=== PATIENT | male | born 1975 | race Caucasian/White ===

== ENCOUNTER 2016-11-05 16:54 | Emergency (ER) | payer OTHER ==
[2016-11-05 17:16] VITALS: BMI 30.4
[2016-11-05] MEDS ORDERED: ONDANSETRON 4 MG/2 ML VIAL IVPB ONE ×2 (18:24→21:56)
[2016-11-05] MEDS ORDERED: HYDROmorphone HCL CARPU-JECT 1 MG/1 ML DISP.SYRIN IVPUSH ONE ×3 (18:25→21:57)
[2016-11-05] MEDS ORDERED: ONDANSETRON 4 MG/2 ML VIAL ONE ×3 (18:29→21:57)
[2016-11-05] MEDS ORDERED: HYDROmorphone HCL CARPU-JECT 1 MG/1 ML DISP.SYRIN ONE ×3 (18:29→21:57)
--- NOTE | 2016-11-05 18:31 | PDOC ---
History of Present Illness - General History Source: Patient Exam Limitations: No Limitations - History of Present Illness Initial Comments: 11/05/16 18:54 The patient is a 41 year old male, with a significant past medical history of anemia, extensive GI problems including PUD, gastroparesis, diverticulitis, and surgical history of bashir fundoplication with subsequent trinidad-en-y, appendectomy, cholecystectomy, and hernia repair (2011), who presents to the emergency department with complaints of nausea, vomiting, abdominal pain, and bloody diarrhea since this morning. The patient denies any blood present in the emesis. The patient has been treated with dilaudid in the past for pain flare ups. Although he states that he is allergic to morphine he has had no allergic reaction to dilaudid with multiple treatments. He denies chest pain, shortness of breath, headache and dizziness. He denies fever, chills, and constipation. Allergies: ketorolac tromethamine, morphine, promethazine HCl, metoclopramide HCl, IV contrast Past surgical history: bashir fundoplication with subsequent trinidad-en-y, appendectomy, cholecystectomy, hernia repair (May 2016) Social history:Never smoked Family history: [place] at early age, Father in his 30s and Mother in her 40s <Raquel Green - Last Filed: 11/05/16 18:58> <eJwel Hudson - Last Filed: 11/08/16 07:47> - General Chief Complaint: Nausea/Vomiting Stated Complaint: N/V/D Time Seen by Provider: 11/05/16 18:23 Past History <Raquel Green - Last Filed: 11/05/16 18:58> - Past Medical History Anemia: Yes (IRON DEFICIENCY) GI Disorders: Yes (ULCERS) - Surgical History Appendectomy: Yes Cholecystectomy: Yes (REFLUX SURGERY) GI Surgery: Yes - Immunization History Immunization Up to Date: Yes - Psycho/Social/Smoking Cessation Hx Anxiety: No Suicidal Ideation: No Smoking History: Never smoked Have you smoked in the past 12 months: No Information on smoking cessation initiated: No Hx Alcohol Use: No Drug/Substance Use Hx: No Substance Use Type: None <Jewel Hudson - Last Filed: 11/08/16 07:47> - Past Medical History Allergies/Adverse Reactions: Allergies Allergy/AdvReac Type Severity Reaction Status Date / Time ketorolac tromethamine Allergy Verified 11/12/13 11:50 [From Toradol] morphine Allergy Verified 11/12/13 11:50 promethazine HCl Allergy Verified 11/12/13 11:50 [From Phenergan] metoclopramide HCl AdvReac Verified 11/12/13 11:50 [From Reglan] CONTRAST Allergy Uncoded 11/05/16 17:44 Home Medications: Ambulatory Orders Diphenhydramine [Benadryl Capsule -] 50 mg PO PRN 11/02/13 Ondansetron HCl [Zofran] 4 mg PO Q4H 11/02/13 Pantoprazole Sodium [Protonix] 40 mg PO BID 11/02/13 Review of Systems - Review of Systems Able to Perform ROS?: Yes Comments:: 11/05/16 18:54 CONSTITUTIONAL: Absent: fever, no chills, no fatigue EYES: Absent: visual changes ENT: Absent: ear pain, no sore throat CARDIOVASCULAR: Absent: chest pain, no palpitations RESPIRATORY: Absent: cough, no SOB GI:+Abdominal pain, +Nausea, +Vomiting, + Bloody Diarrhea Absent: no constipation GENITOURINARY: Absent: dysuria, no frequency, no hematuria MUSKULOSKELETAL: Absent: back pain, no arthralgia, no myalgia SKIN: Absent: rash NEURO: Absent: headache <CraftRaquel - Last Filed: 11/05/16 18:58> *Physical Exam - Vital Signs Last Vital Signs Temp Pulse Resp BP Pulse Ox 98.5 F 89 18 134/87 97 11/05/16 16:58 11/05/16 16:58 11/05/16 16:58 11/05/16 16:58 11/05/16 16:58 - Physical Exam Comments: 11/05/16 18:58 GENERAL: Well-appearing, well-nourished. None icterus. No apparent distress. HEENT: Normocephalic, atraumatic. PERRL, EOM intact. Moist mucous membranes. Neck without masses. CARDIOVASCULAR: Normal S1, S2. Regular rate and rhythm. PULMONARY: Clear to auscultation bilaterally. ABDOMEN: +Multiple scars due to prior surgeries. There was moderate to severe tenderness in the lower left quadrant with involuntary guarding but no rebound. Soft, non-distended. Normal bowel sounds. EXTREMITIES: Normal ROM in all four extremities. No gross deformities. SKIN: Warm, dry. No rash NEUROLOGICAL: No focal neurological deficits. <Raquel Green - Last Filed: 11/05/16 18:58> - Vital Signs Last Vital Signs Temp Pulse Resp BP Pulse Ox 98.5 F 89 18 134/87 97 11/05/16 16:58 11/05/16 16:58 11/05/16 16:58 11/05/16 16:58 11/05/16 16:58 <Jewel Hudson - Last Filed: 11/08/16 07:47> ED Treatment Course - LABORATORY CBC & Chemistry Diagram: 11/05/16 18:30 11/05/16 18:30 - Medications Given in the ED: ED Medications Discontinued Medications Generic Name Dose Route Start Last Admin Trade Name Jane PRN Reason Stop Dose Admin Diphenhydramine HCl 50 mg 11/05/16 18:25 11/05/16 18:29 Benadryl Injection - IVPUSH 11/05/16 18:26 50 mg ONCE ONE Administration Hydromorphone HCl 1 mg 11/05/16 18:25 11/05/16 18:29 Dilaudid Injection - IVPUSH 11/05/16 18:26 1 mg ONCE ONE Administration Ondansetron HCl 4 mg 11/05/16 18:24 11/05/16 18:29 Zofran Injection IVPB 11/05/16 18:25 4 mg ONCE ONE Administration <Raquel Green - Last Filed: 11/05/16 18:58> - LABORATORY CBC & Chemistry Diagram: 11/05/16 18:30 11/05/16 18:30 <Jewel Hudson - Last Filed: 11/08/16 07:47> Medical Decision Making - Medical Decision Making Patient with a history of diverticulitis and multiple prior abdominal surgeries presents with what he feels is a flareup of his diverticulitis. Pain began this morning, left lower quadrant, states he had several episodes of vomiting and diarrhea. Abdominal exam shows tenderness in the left lower quadrant, equivocal guarding, no rebound. Labs and CAT scan are pending. Signed out to Dr. Santacruz 7 PM pending results of studies. <Jewel Hudson - Last Filed: 11/08/16 07:47> *DC/Admit/Observation/Transfer - Attestations Scribe Attestion: 11/05/16 18:54 Documentation prepared by DELTA Sevilla, acting as director global medical affairs for Jewel Hudson MD. <Raquel Green - Last Filed: 11/05/16 18:58> <Jewel Hudson - Last Filed: 11/08/16 07:47> Diagnosis at time of Disposition: Diarrhea, Abdominal pain - Discharge Dispostion Disposition: HOME Condition at time of disposition: Stable - Patient Instructions Printed Discharge Instructions: DI for Diarrhea and Traveler's Diarrhea -- Adult Additional Instructions: Drink plenty of fluids Follow-up with your doctor within 2 days See your doctor sooner or go to ER if you have increasing pain/increased rectal bleeding/develop vomiting
[2016-11-05 18:45] LABS: MCH 25.2 pg (25.7-33.7); MCHC 34.1 g/dl (32.0-35.9); MEAN CELL VOLUME 73.7 fl (80-96); MEAN PLT VOLUME 7.4 fl (7.5-11.1); PLATELET COUNT 267 K/MM3 (134-434); RDW 13.6 % (11.9-15.9); WHITE BLOOD COUNT 5.9 K/mm3 (4.0-10.8)
[2016-11-05] MEDS ORDERED: SODIUM CHLORIDE 1,000 ML IV STA (18:57)
[2016-11-05 19:04] LABS: ALBUMIN 4.2 g/dl (3.5-5.0); ALK PHOS 130 U/L (32-92); ANION GAP 6 (8-16); BILIRUBIN,TOTAL 0.7 mg/dl (0.2-1.0); CALCIUM 9.1 mg/dl (8.4-10.2); CO2 25 mmol/L (22-28); CREATININE 0.9 mg/dl (0.6-1.3); GLUCOSE,RANDOM 170 mg/dl (74-106); SGOT/AST 40 U/L (10-42); SGPT/ALT 35 U/L (10-40); TOT PROT 7.6 g/dl (6.4-8.3)
[2016-11-05 19:19] LABS: HYPOCHROMIA 1+; MICROCYTOSIS 1+
[2016-11-05 19:41] LABS: PH,URINE 5.5 (4.5-8); URINE APPEARANCE Clear; URINE BILIRUBIN Negative (NEGATIVE); URINE BLOOD Negative (NEGATIVE); URINE GLUCOSE (UA) Negative (NEGATIVE); URINE KETONE Negative (NEGATIVE); URINE LEUK ESTERASE Negative (NEGATIVE); URINE NITRITE Negative (NEGATIVE); URINE PROTEIN Negative (NEGATIVE); URINE UROBILINOGEN 0.2 E.U/dl (0.2-1.0)
[2016-11-05 19:42] LABS: URINE COLOR YELLOW
--- NOTE | 2016-11-05 19:52 | PDOC ---
*Physical Exam - Vital Signs Last Vital Signs Temp Pulse Resp BP Pulse Ox 98.5 F 89 18 134/87 97 11/05/16 16:58 11/05/16 16:58 11/05/16 16:58 11/05/16 16:58 11/05/16 16:58 ED Treatment Course - LABORATORY CBC & Chemistry Diagram: 11/05/16 18:30 11/05/16 18:30 - ADDITIONAL ORDERS Additional order review: Laboratory Results 11/05/16 11/05/16 19:30 18:30 Sodium 136 Potassium 4.0 Chloride 105 Carbon Dioxide 25 Anion Gap 6 L BUN 10 Creatinine 0.9 Creat Clearance w eGFR > 60 Random Glucose 170 H Calcium 9.1 Total Bilirubin 0.7 AST 40 ALT 35 Alkaline Phosphatase 130 H Total Protein 7.6 Albumin 4.2 Lipase 26 Urine Color Yellow Urine Appearance Clear Urine pH 5.5 Ur Specific [place] 1.020 Urine Protein Negative Urine Glucose (UA) Negative Urine Ketones Negative Urine Blood Negative Urine Nitrite Negative Urine Bilirubin Negative Urine Urobilinogen 0.2 e.u/dl Ur Leukocyte Esterase Negative 11/05/16 18:30 RBC 4.85 MCV 73.7 L MCHC 34.1 RDW 13.6 MPV 7.4 L Neutrophils % 95.0 H Lymphocytes % 2.0 L Monocytes % 1.0 L - Medications Given in the ED: ED Medications Discontinued Medications Generic Name Dose Route Start Last Admin Trade Name Jane PRN Reason Stop Dose Admin Diphenhydramine HCl 50 mg 11/05/16 18:25 11/05/16 18:29 Benadryl Injection - IVPUSH 11/05/16 18:26 50 mg ONCE ONE Administration Hydromorphone HCl 1 mg 11/05/16 18:25 11/05/16 18:29 Dilaudid Injection - IVPUSH 11/05/16 18:26 1 mg ONCE ONE Administration Hydromorphone HCl 1 mg 11/05/16 19:00 11/05/16 19:18 Dilaudid Injection - IVPUSH 11/05/16 19:01 1 mg ONCE ONE Administration Ondansetron HCl 4 mg 11/05/16 18:24 11/05/16 18:29 Zofran Injection IVPB 11/05/16 18:25 4 mg ONCE ONE Administration Progress Note - Progress Note Progress Note: Care of this patient received from Dr. Avila. Abdominal/pelvic CT shows no evidence of acute pathology without evidence of obstruction/abscess/acute inflammatory or infectious process Results discussed with the patient. Patient states that he has had recurrence of his pain; he is been informed that he can have 1 more dose of pain medication here but will not be discharged with any prescription for pain medications. He understands this and agrees. Patient will follow-up with his general doctor (in [place]) within the next few days, especially if he has persistent blood or mucus in his diarrhea. He should return to the ER if he has worsening abdominal pain or develops fever/ chills/vomiting *DC/Admit/Observation/Transfer Diagnosis at time of Disposition: Diarrhea Qualifiers: Diarrhea type: unspecified type Qualified Code(s): R19.7 - Diarrhea, unspecified Abdominal pain Qualifiers: Abdominal location: left lower quadrant Qualified Code(s): R10.32 - Left lower quadrant pain - Discharge Dispostion Disposition: HOME Condition at time of disposition: Stable - Patient Instructions Printed Discharge Instructions: DI for Diarrhea and Traveler's Diarrhea -- Adult Additional Instructions: Drink plenty of fluids Follow-up with your doctor within 2 days See your doctor sooner or go to ER if you have increasing pain/increased rectal bleeding/develop vomiting
[2016-11-05] MEDS ORDERED: ONDANSETRON 4 MG/2 ML VIAL IVPUSH ONE (20:56)
[2016-11-05 22:13] VITALS: BP 130/92; PULSE 103; TEMP 98.3
== END 2016-11-05 22:12 | disposition home or self-care (01) ==
LOC: FER 16:54
PROC: 3E033GC Introduction of Other Therapeutic Substance into Peripheral Vein, Percutaneous Approach (ICD-10-PCS; principal; 2016-11-05)
PROC: 3E033NZ Introduction of Analgesics, Hypnotics, Sedatives into Peripheral Vein, Percutaneous Approach (ICD-10-PCS; 2016-11-05)
PROC: 3E0337Z Introduction of Electrolytic and Water Balance Substance into Peripheral Vein, Percutaneous Approach (ICD-10-PCS; 2016-11-05)
DX: R19.7 Diarrhea, unspecified (principal); R10.9 Unspecified abdominal pain; D50.9 Iron deficiency anemia, unspecified
CPT/HCPCS: 36415; 74176-TC; 80053; 81003; 83690; 85025; 99282-25

== ENCOUNTER 2018-08-15 19:12 | Emergency (ER) | payer OTHER ==
[2018-08-15 19:20] VITALS: BP 122/80; PULSE 90; TEMP 97.9; BMI 23.6
[2018-08-15] MEDS ORDERED: HYDROmorphone HCL CARPU-JECT 1 MG/1 ML DISP.SYRIN IVPUSH ONE (19:39)
[2018-08-15] MEDS ORDERED: ONDANSETRON 4 MG/2 ML VIAL IVPB ONE (19:39)
[2018-08-15] MEDS ORDERED: PANTOPRAZOLE SODIUM 40 MG VIAL IVPUSH ONE (19:40)
[2018-08-15] MEDS ORDERED: ONDANSETRON 4 MG/2 ML VIAL ONE ×2 (19:51→21:33)
[2018-08-15] MEDS ORDERED: PANTOPRAZOLE SODIUM 40 MG VIAL ONE (19:52)
[2018-08-15] MEDS ORDERED: HYDROmorphone HCL CARPU-JECT 1 MG/1 ML DISP.SYRIN ONE (19:52)
[2018-08-15 20:26] LABS: BASO % 0.7 % (0-2.0); EOS % 1.5 % (0-4.5); HEMATOCRIT 32.1 % (35.4-49); HEMOGLOBIN 10.7 GM/dl (11.7-16.9); LYMPH % 18.5 % (8-40); MCH 27.3 pg (25.7-33.7); MCHC 33.3 g/dl (32.0-35.9); MEAN CELL VOLUME 82.2 fl (80-96); MEAN PLT VOLUME 7.1 fl (7.5-11.1); MONO % 11.3 % (3.8-10.2); PLATELET COUNT 231 K/MM3 (134-434); RBC 3.91 M/mm3 (4.00-5.60); RDW 20.3 % (11.9-15.9); WHITE BLOOD COUNT 3.9 K/mm3 (4.0-10.8)
[2018-08-15 20:29] LABS: ADD RBC MORPHOLOGY YES
--- NOTE | 2018-08-15 20:30 | PDOC ---
Documentation entered by Stoney Burroughs SCRIBE, acting as scribe for Lanny Batres MD. Lanny Batres MD: This documentation has been prepared by the Heike lay Nirvannie, SCRIBE, under my direction and personally reviewed by me in its entirety. I confirm that the documentation accurately reflects all work, treatment, procedures, and medical decision making performed by me. History of Present Illness - General Chief Complaint: Pain, Acute Stated Complaint: N/V/D/ABD PAIN Time Seen by Provider: 08/15/18 19:18 History Source: Patient Exam Limitations: No Limitations - History of Present Illness Initial Comments: 08/15/18 19:49 HPI: The patient is a 43 year old male, with a significant past medical history of anemia, extensive GI problems including PUD, gastroparesis, diverticulitis, and gastric ulcers, who presents to the emergency department with, nausea with hematemesis, left quadrant abdominal pain, and diarrhea. 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 He endorses similar episodes in the past which resolved after IV Benadryl, Zofran, Protonix, Dilaudid, and fluids. He denies any recent fevers, chills, headache or dizziness. He denies any recent chest pain or shortness of breath. He denies any recent dysuria, frequency, urgency or hematuria. PAST MEDICAL HISTORY: anemia, extensive GI problems including PUD, gastroparesis, diverticulitis, and gastric ulcers PAST SURGICAL HISTORY: bashir fundoplication with subsequent trinidad-en-y, appendectomy, cholecystectomy, hernia repair (May 2016) FAMILY HISTORY: no pertinent history SOCIAL HISTORY: Pt lives with family and is employed. MEDICATIONS: reviewed ALLERGIES: As per nursing notes ROS: General: No fevers or chills, no weakness, no weight loss HEENT: No change in vision. No sore throat,. No ear pain CardioVascular: No chest pain or shortness of breath Respiratory:No cough, or wheezing. Gastrointestinal: +Nausea. +Hematemesis. +Diarrhea. +Abdominal pain. Genitourinary: No dysuria, hematuria, or frequency Musculoskeletal: No joint or muscle pain or swelling Neurologic: No headache, vertigo, dizziness or loss of consciousness Psychiatric: nor depression Skin: No rashes or easy bruising Endocrine: no increased thirst or abnormal weight change Allergic: no skin or latex allergy All other systems reviewed and normal Physical Exam: General: Well-nourished well-developed individual, no acute distress HEENT: Throat: Normal, tonsils normal, no erythema or exudate Neck: Supple, no meningeal signs, no lymphadenopathy Eyes:Pupils equal reactive and round, extraocular motion intact Chest: Nontender to palpation Cardiac: S1-S2 normal, regular rate and rhythm, no murmurs rubs or gallops Respiratory: Lungs clear to auscultation bilateral Abdomen: Soft, nondistended, +increased bowel sounds, +tenderness to deep palpation of the LUQ. Extremities: Warm, dry, no cyanosis, clubbing, or edema Skin: No rashes Neuro: Alert and oriented x3, nonfocal exam, grossly intact, normal gait Psych: Normal mood and affect 08/15/18 20:32 Assessment and plan: This is a 43-year-old male with extensive history of abdominal surgeries. Patient comes in complaining of several episodes of emesis with some bright red blood in it. Patient said this is not uncommon for him and he has had this in the past. Patient said normally some IV fluids some antiemetics, pain medication and Protonix are adequate. Patient's surgeons are not in this area they're all over in [place]. Patient will have a basic workup including CAT scan labs and will reassess and reevaluate. 08/15/18 21:33 Patient's workup was unremarkable for any acute pathology including the CAT scan. Patient had a normal white count and no left shift and his chemistries were unremarkable. Patient felt better after the IV fluids Zofran Benadryl and Dilaudid. However patient said some nausea (to return so I gave him some more Zofran and he will be discharged home. Past History - Past Medical History Allergies/Adverse Reactions: Allergies Allergy/AdvReac Type Severity Reaction Status Date / Time ketorolac tromethamine Allergy Verified 11/12/13 11:50 [From Toradol] morphine Allergy Verified 11/12/13 11:50 promethazine HCl Allergy Verified 11/12/13 11:50 [From Phenergan] metoclopramide HCl AdvReac Verified 11/12/13 11:50 [From Reglan] CONTRAST Allergy Uncoded 11/05/16 17:44 Home Medications: Ambulatory Orders Diphenhydramine [Benadryl Capsule -] 50 mg PO PRN 11/02/13 Ondansetron HCl [Zofran] 4 mg PO Q4H 11/02/13 Pantoprazole Sodium [Protonix] 40 mg PO BID 11/02/13 Dilaudid - PRN 08/15/18 Sucralfate [Carafate -] 1 gm PO QID 08/15/18 Anemia: Yes (IRON DEFICIENCY) COPD: No GI Disorders: Yes (ULCERS, GASTROPARESIS, DIVERTIC) - Surgical History Appendectomy: Yes Cholecystectomy: Yes (REFLUX SURGERY) GI Surgery: Yes (15) - Immunization History Immunization Up to Date: Yes - Suicide/Smoking/Psychosocial Hx Smoking History: Never smoked Have you smoked in the past 12 months: No Hx Alcohol Use: No Drug/Substance Use Hx: No Substance Use Type: None *Physical Exam - Vital Signs Last Vital Signs Temp Pulse Resp BP Pulse Ox 97.9 F 90 16 122/80 100 08/15/18 19:15 08/15/18 19:15 08/15/18 19:15 08/15/18 19:15 08/15/18 19:15 ED Treatment Course - LABORATORY CBC & Chemistry Diagram: 08/15/18 20:05 08/15/18 20:05 *DC/Admit/Observation/Transfer Diagnosis at time of Disposition: Abdominal pain in male patient - Discharge Dispostion Disposition: HOME Condition at time of disposition: Stable Decision to Admit order: No - Referrals - Patient Instructions Additional Instructions: Continue to take all your medications as prescribed. Return to the emergency department immediately with ANY new, persistent or worsening symptoms. Continue any medications as previously prescribed by your physician. You should follow up with your primary doctor as soon as possible regarding today's emergency department visit. . Please make sure your doctor reviews the results of your emergency evaluation. Thank you for coming to the Emergency Department today for your care. It was a pleasure to see you today. Please note that your evaluation is INCOMPLETE until you follow-up with your doctor. - Post Discharge Activity
[2018-08-15] MEDS ORDERED: SODIUM CHLORIDE 1,000 ML IV ONE (20:33)
[2018-08-15 20:38] LABS: ALBUMIN 3.2 g/dl (3.4-5.0); ALK PHOS 132 U/L (45-117); ANION GAP 7 MMOL/L (8-16); BILIRUBIN,TOTAL 0.4 mg/dl (0.2-1); BLOOD UREA NITROGEN 15 mg/dl (7-18); CALCIUM 8.4 mg/dl (8.5-10); CHLORIDE 107 mmol/L (98-107); CO2 25 mmol/L (21-32); CREATININE 0.6 mg/dl (0.55-1.3); GLUCOSE,RANDOM 101 mg/dl (74-106); POTASSIUM 3.9 mmol/L (3.5-5.1); SGOT/AST 25 U/L (15-37); SGPT/ALT 23 U/L (13-61); SODIUM 139 mmol/L (136-145)
[2018-08-15] MEDS ORDERED: ONDANSETRON 4 MG/2 ML VIAL IVPUSH ONE (21:31)
[2018-08-15 21:36] LABS: URIC ACID CRYSTALS 2+ /hpf (NONE SEEN)
[2018-08-15 22:50] LABS: ANISOCYTOSIS 3+; PLATELET ESTIMATE ADEQUATE
[2018-08-15 23:19] LABS: LIPASE 155 U/L (73-393)
== END 2018-08-15 21:51 | disposition home or self-care (01) ==
LOC: FER 19:12
PROC: 3E0337Z Introduction of Electrolytic and Water Balance Substance into Peripheral Vein, Percutaneous Approach (ICD-10-PCS; principal; 2018-08-15)
PROC: 3E033NZ Introduction of Analgesics, Hypnotics, Sedatives into Peripheral Vein, Percutaneous Approach (ICD-10-PCS; 2018-08-15)
PROC: 3E033GC Introduction of Other Therapeutic Substance into Peripheral Vein, Percutaneous Approach (ICD-10-PCS; 2018-08-15)
PROC: 3E033GC Introduction of Other Therapeutic Substance into Peripheral Vein, Percutaneous Approach (ICD-10-PCS; 2018-08-15)
PROC: 3E033GC Introduction of Other Therapeutic Substance into Peripheral Vein, Percutaneous Approach (ICD-10-PCS; 2018-08-15)
DX: R10.9 Unspecified abdominal pain (principal); Z87.19 Personal history of other diseases of the digestive system; Z86.2 Personal history of diseases of the blood and blood-forming organs and certain disorders involving the immune mechanism
CPT/HCPCS: 36415; 74176-TC; 80053; 81003; 81015; 82550; 83605; 83690; 84484; 85025; 99283-25; J7030

== ENCOUNTER 2018-12-25 01:25 | Emergency (ER) | payer SELFPAY ==
--- NOTE | 2018-12-25 01:35 | PDOC ---
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 The patient notes some bloody streaking in vomitus which has occurred in the past, thought to be secondary to gastric resection according the patient. No blood in diarrhea. Patient is currently not taking any medications specifically for Crohn's disease , stating that his doctors are "observing it". Patient states that he lives in [place], where his gastroenterologists and surgeons are. His girlfriend lives locally ([place]). 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 He last ate and took his prescribed medications 8 hours prior to medications No family history of gastrointestinal problems. Strong family history of early heart disease (both mother and father of myocardial infarction prior to age 50). Patient has no history of cardiac disease. Patient denies smoking history. No alcohol or other recreational drug use. Past History - Past Medical History Allergies/Adverse Reactions: Allergies Allergy/AdvReac Type Severity Reaction Status Date / Time ketorolac tromethamine Allergy Verified 12/25/18 02:05 [From Toradol] morphine Allergy Verified 12/25/18 02:05 promethazine HCl Allergy Verified 12/25/18 02:05 [From Phenergan] metoclopramide HCl AdvReac Verified 12/25/18 02:05 [From Reglan] CONTRAST Allergy Uncoded 11/05/16 17:44 Home Medications: Ambulatory Orders Diphenhydramine [Benadryl Capsule -] 50 mg PO PRN 11/02/13 Ondansetron HCl [Zofran] 4 mg PO Q4H 11/02/13 Pantoprazole Sodium [Protonix] 40 mg PO BID 11/02/13 Dilaudid - PRN 08/15/18 Sucralfate [Carafate -] 1 gm PO QID 08/15/18 Anemia: Yes (IRON DEFICIENCY) COPD: No GI Disorders: Yes (ULCERS, GASTROPARESIS, DIVERTIC) - Surgical History Appendectomy: Yes Cholecystectomy: Yes (REFLUX SURGERY) GI Surgery: Yes (15) - Immunization History Immunization Up to Date: Yes - Suicide/Smoking/Psychosocial Hx Smoking History: Never smoked Have you smoked in the past 12 months: No Hx Alcohol Use: No Drug/Substance Use Hx: No Substance Use Type: None Review of Systems - Review of Systems Able to Perform ROS?: Yes Comments:: 12 point review of systems is negative except for what is noted in the history of present illness *Physical Exam - Physical Exam Comments: GENERAL: Adult male, alert and oriented 3, in mild distress secondary to nausea /abdominal discomfort HEAD: Normal with no signs of trauma. EYES: PERRLA, EOMI, sclera anicteric, conjunctiva clear. ENT: Ears normal, nares patent, oropharynx clear without exudates. Dry mucous membranes. NECK: Normal range of motion, supple without lymphadenopathy, JVD, or masses. LUNGS: Breath sounds equal, clear to auscultation bilaterally. No wheezes, and no crackles. HEART:Regular rate and rhythm, normal S1 and S2 without murmur, rub or gallop. ABDOMEN:.Normoactive bowel sounds; soft, nondistended, multiple well-healed surgical incisions; generalized mild tenderness without rebound/guarding No masses EXTREMITIES: Normal range of motion, no edema. No clubbing or cyanosis. No erythema, or tenderness. NEUROLOGICAL: Cranial nerves II through XII grossly intact. Normal speech. No focal neurological deficits. ED Treatment Course - LABORATORY CBC & Chemistry Diagram: 12/25/18 02:04 12/25/18 02:04 Progress Note - Progress Note Progress Note: This 43-year-old man with long history of multiple gastrointestinal issues with most recent development of intestinal perforation/bowel resection last year and new diagnosis of "borderline Crohn's disease" presents with several hour history of nausea/vomiting/diarrhea along with usual generalized abdominal pain. Patient relates that this episodes are typical of usual flareups of abdominal pain/vomiting/ diarrhea. He states that his doctors believe that these episodes are related to inflammatory issues within the bowel and are not infectious or related to diet. Exam as noted. Because patient was not actively vomiting on presentation, abdomen was soft without significant point tenderness with normal bowel sounds, acute obstruction is not highly suspected. Therefore, imaging studies will be deferred unless symptoms are persistent. According to the patient IV fluids, Benadryl 50 mg IV, Protonix 40 mg IV, Dilaudid 1-2 mg IV, Zofran 4 mg IV are typically effective for treatment of his symptoms The patient has an indwelling port in the left upper chest. This was accessed for blood work and fluids/medication administration. CBC and chemistry profile evaluated: Patient has evidence of mild anemia, stable as compared to previous values. White blood cell count is 4,600 with normal differential. Chemistry profile revealed normal electrolytes, BUN/ creatinine. LFT was mildly elevated but this has been noted in the past . No other significant abnormality seen. Medical Decision Making - Medical Decision Making 12/25/18 03:28 Patient felt significant improvement in nausea, some improvement in pain after 1 L normal saline IV, 8 mg Zofran IV total, 100 mg Benadryl IV total, Dilaudid 3 mg IV total. He continued to have intermittent diarrhea but no blood noted in stool. He felt comfortable enough to go home, stating that he will follow- up with his doctors tomorrow. Repeat vital signs showed no evidence of hypotension (BP 148/90); he ambulated without difficulty and was alert, oriented on discharge. He states that he would return to his girlfriend's home in [place] via car service ([employer]) 12/25/18 03:40 When patient was discharged, he assured me that he had called car service through his phone application and was awaiting car arrival to return home. He was clearly advised not to drive himself home and he agreed, stating "I am not stupid". After discharge, the patient stayed outside of the ED entrance for approximately 10 minutes. He was then noted by security staff entering his own vehicle and driving out of the parking lot. *DC/Admit/Observation/Transfer Diagnosis at time of Disposition: Diarrhea Qualifiers: Diarrhea type: unspecified type Qualified Code(s): R19.7 - Diarrhea, unspecified Abdominal pain Qualifiers: Abdominal location: generalized Qualified Code(s): R10.84 - Generalized abdominal pain - Discharge Dispostion Disposition: HOME Condition at time of disposition: Stable - Referrals - Patient Instructions Printed Discharge Instructions: Diarrhea Additional Instructions: Continue medications as prescribed Drink plenty of fluids Follow-up with your doctor tomorrow as discussed Return to ER if you have persistent vomiting/worsening pain/fever or bloody diarrhea - Post Discharge Activity
[2018-12-25] MEDS ORDERED: SODIUM CHLORIDE 1,000 ML IV STA (01:44)
[2018-12-25] MEDS ORDERED: ONDANSETRON 4 MG/2 ML VIAL IVPUSH ONE ×2 (01:45→02:23)
[2018-12-25] MEDS ORDERED: HYDROmorphone HCL CARPU-JECT 1 MG/1 ML DISP.SYRIN IVPUSH ONE ×3 (01:49→02:55)
[2018-12-25] MEDS ORDERED: ONDANSETRON 4 MG/2 ML VIAL ONE ×2 (01:56→02:23)
[2018-12-25] MEDS ORDERED: HYDROmorphone HCL CARPU-JECT 1 MG/1 ML DISP.SYRIN ONE ×3 (01:56→02:56)
[2018-12-25] MEDS ORDERED: PANTOPRAZOLE SODIUM 40 MG VIAL IVPB ONE (02:08)
[2018-12-25 02:12] VITALS: TEMP 98; BMI 27.3
[2018-12-25] MEDS ORDERED: PANTOPRAZOLE SODIUM 40 MG VIAL ONE (02:14)
[2018-12-25 02:41] LABS: BASO % 0.7 % (0-2.0); EOS % 1.1 % (0-4.5); HEMATOCRIT 31.3 % (35.4-49); HEMOGLOBIN 9.8 GM/dL (11.7-16.9); LYMPH % 20.2 % (8-40); MCH 22.3 pg (25.7-33.7); MCHC 31.3 g/dl (32.0-35.9); MEAN CELL VOLUME 71.2 fl (80-96); MEAN PLT VOLUME 7.6 fl (7.5-11.1); MONO % 10.5 % (3.8-10.2); NEUT % 67.5 % (42.8-82.8); PLATELET COUNT 215 K/MM3 (134-434); RBC 4.39 M/mm3 (4.00-5.60); RDW 19.9 % (11.9-15.9); WHITE BLOOD COUNT 4.6 K/mm3 (4.0-10.0)
[2018-12-25 02:49] LABS: ALBUMIN 3.6 g/dl (3.4-5.0); BILIRUBIN,TOTAL 0.4 mg/dL (0.2-1); BLOOD UREA NITROGEN 14.8 mg/dL (7-18); CALCIUM 8.3 mg/dL (8.5-10.1); CREATININE 0.9 mg/dL (0.55-1.3); POTASSIUM 3.7 mmol/L (3.5-5.1); TOT PROT 6.7 g/dl (6.4-8.2)
[2018-12-25 03:20] VITALS: BP 148/90; PULSE 95
== END 2018-12-25 03:23 | disposition home or self-care (01) ==
LOC: FER 01:25
PROC: 3E033GC Introduction of Other Therapeutic Substance into Peripheral Vein, Percutaneous Approach (ICD-10-PCS; principal; 2018-12-25)
PROC: 3E033NZ Introduction of Analgesics, Hypnotics, Sedatives into Peripheral Vein, Percutaneous Approach (ICD-10-PCS; 2018-12-25)
PROC: 3E0337Z Introduction of Electrolytic and Water Balance Substance into Peripheral Vein, Percutaneous Approach (ICD-10-PCS; 2018-12-25)
DX: R10.84 Generalized abdominal pain (principal); R19.7 Diarrhea, unspecified
CPT/HCPCS: 36415; 80053; 85025; 99282-25; J7030

== ENCOUNTER 2019-01-07 01:04 | Emergency (ER) | payer SELFPAY ==
--- NOTE | 2019-01-07 01:06 | PDOC ---
History of Present Illness - General Chief Complaint: Pain Stated Complaint: ABDOMINAL PAIN, VOMITING Time Seen by Provider: 01/07/19 01:06 - History of Present Illness Initial Comments: 01/07/19 01:16 Pt with history of PUD, gastritis, ?chrons, diverticulitis and multiple abdominal surgeries presents to the ED complaining of the acute onset of nausea , vomiting and epigastric pain that began 5 hours ago. He reports more than 6 episodes on non bloody, non bilious emesis. Patient has longstanding history of chronic intermittent nausea and vomiting, and has been to the ED for the same complaints several times with negative work up. States that he is followed by physicians in [facility] and that he had an endoscopy on Sunday which showed "a lot of inflammation". States that he is going to have a colostomy placed for "inflammation". Reports recently being started on steroids. STates that he takes PO dilaudid as need for pain. Has a port placed because he is a "hard stick". He reports an allergy to morphine, but not to dilaudid. Patient reports that he was feeling well prior to the start of this episode, and tolerated his normal diet for lunch and dinner. His last bowel movement was one hour ago, and while it was watery, patient reports that he has been passing gas. Denies fever or urinary complaints. 01/07/19 01:22 01/07/19 01:29 Past History - Past Medical History Allergies/Adverse Reactions: Allergies Allergy/AdvReac Type Severity Reaction Status Date / Time ketorolac tromethamine Allergy Verified 01/07/19 01:07 [From Toradol] morphine Allergy Verified 01/07/19 01:07 promethazine HCl Allergy Verified 01/07/19 01:07 [From Phenergan] metoclopramide HCl AdvReac Verified 01/07/19 01:07 [From Reglan] CONTRAST Allergy Uncoded 01/07/19 01:07 Home Medications: Ambulatory Orders Diphenhydramine [Benadryl Capsule -] 50 mg PO PRN 11/02/13 Ondansetron HCl [Zofran] 4 mg PO Q4H 11/02/13 Pantoprazole Sodium [Protonix] 40 mg PO BID 11/02/13 Sucralfate [Carafate -] 1 gm PO QID 08/15/18 HYDROmorphone [Dilaudid -] 2 mg PO Q4H PRN 01/07/19 Methylprednisolone [Medrol Dose Olman] 4 mg PO ASDIR 01/07/19 Anemia: Yes (IRON DEFICIENCY) COPD: No GI Disorders: Yes (ULCERS, GASTROPARESIS, DIVERTIC) - Surgical History Appendectomy: Yes Cholecystectomy: Yes (REFLUX SURGERY) GI Surgery: Yes (15) - Immunization History Immunization Up to Date: Yes - Suicide/Smoking/Psychosocial Hx Smoking History: Never smoked Have you smoked in the past 12 months: No Hx Alcohol Use: No Drug/Substance Use Hx: No Substance Use Type: None Review of Systems - Review of Systems Able to Perform ROS?: Yes Is the patient limited Moh[place] proficient: No Constitutional: No: Symptoms Reported, See HPI, Chills, Diaphoresis, Fever, Loss of Appetite, Malaise, Night Sweats, Weakness, Weight Stable, Unintentional Wgt. Loss, Unexplained wgt Loss, Other HEENTM: No: Symptoms Reported, See HPI, Eye Pain, Blurred Vision, Tearing, Recent change in vision, Double Vision, Cataracts, Ear Pain, Ocular Prothesis, Ear Discharge, Nose Pain, Nose Congestion, Tinnitus, Nose Bleeding, Hearing Loss , Throat Pain, Throat Swelling, Mouth Pain, Dental Problems, Difficulty Swallowing, Mouth Swelling, Other Respiratory: No: Symptoms reported, See HPI, Cough, Orthopnea, Shortness of Breath, SOB with Exertion, SOB at Rest, Stridor, Wheezing, Productive cough, Hemoptysis, Other Cardiac (ROS): No: Symptoms Reported, See HPI, Chest Pain, Edema, Irregular Heart Rate, Lightheadedness, Palpitations, Syncope, Chest Tightness, Other ABD/GI: Yes: See HPI, Diarrhea, Nausea, Vomiting : No: Symptoms Reported, See HPI, Burning, Dysuria, Discharge, Frequency, Flank Pain, Hematuria, Incontinence, Pain, Urgency, Testicular Mass, Testicular Swelling, Lesions, Testicular Pain, Other Musculoskeletal: No: Symptoms Reported, See HPI, Back Pain, Gout, Joint Pain, Joint Swelling, Muscle Pain, Muscle Weakness, Neck Pain, Joint Stiffness, Other Integumentary: No: Symptoms Reported, See HPI, Bruising, Change in Color, Change in Hair/Nails, Dryness, Erythema, Flushing, Lesions, Lumps, Pallor, Pruritus, Rash, Sweating, Other Neurological: No: Symptoms reported, See HPI, Headache, Numbness, Paresthesia, Pre-Existing Deficit, Seizure, Tingling, Tremors, Weakness, Unsteady Gait, Ataxia, Dizziness, Other Psychiatric: No: Anxiety, Depression, Frequent Crying, Stressors, Sleep Pattern Change, Emotional Problems, Mood Swings, Change in Appetite, Other Endocrine: No: Symptoms Reported, See HPI, Excessive Sweating, Flushing, Intolerance to Cold, Intolerance to Heat, Increased Hunger, Increased Thirst, Increased Urine, Unexplained Weight Gain, Unexplained Weight Loss, Change in Weight, Other All Other Systems: Reviewed and Negative *Physical Exam - Physical Exam Comments: 01/07/19 01:23 Gen: alert, NAD HEENT:normocephalic, atraumatic CV: rrr no m/r/g pulm: CTA b/l abdomen: + multiple healed surgical incisions. soft, non tender, non distended , no CVA tenderness ext: no edema or tenderness Neuro: alert and oriented x 3, CN grossly intact, moving all extremities. ED Treatment Course - LABORATORY CBC & Chemistry Diagram: 01/07/19 01:45 01/07/19 01:45 Medical Decision Making - Medical Decision Making 01/07/19 01:24 pt presents to the ED complaining of nausea and vomiting, which seems to be an acute exacerbation of his chronic nausea and vomiting. Although the patient's multiple abdominal surgeries place him at risk for obstruction, the patient has a non tender abdomen and is passing gas. Will check labs, treat nausea and hold off on imaging for now. Will consider CT if labs show abnormality or if patient is persistently vomiting. 01/07/19 01:28 01/07/19 02:36 plan was to send labs, give treatment and reassess the patient. After recievng IV fluid, zofran, pepcid and IV tylenol, the patient told the nurse that the "medicine isn't doing anything for me" and requested to leave AMA. I discussed the risks of leaving with the patient, including severe dehydration, liver or kidney failure or . Patient desires to go home and take his own medication. He will return to the Ed or seek care elsewhere for worsening symptoms. *DC/Admit/Observation/Transfer Diagnosis at time of Disposition: Abdominal pain in male patient - Discharge Dispostion Disposition: AGAINST MEDICAL ADVICE Condition at time of disposition: Good Decision to Admit order: No - Referrals - Patient Instructions - Post Discharge Activity
[2019-01-07 01:10] VITALS: BP 142/72; PULSE 81; TEMP 98.1; BMI 27.3
[2019-01-07] MEDS ORDERED: ONDANSETRON 4 MG/2 ML VIAL IVPUSH ONE (01:14)
[2019-01-07] MEDS ORDERED: ACETAMINOPHEN 1000 MG/100 ML VIAL (NON FORMULARY) IVPB ONE (01:14)
[2019-01-07] MEDS ORDERED: FAMOTIDINE 20 MG/50 ML IVPB 20 MG/50 ML MG IVPB ONE ×2 (01:14→01:47)
[2019-01-07] MEDS ORDERED: ACETAMINOPHEN INJECTION 100 ML IVPB ONE (01:47)
[2019-01-07] MEDS ORDERED: ONDANSETRON 4 MG/2 ML VIAL ONE (01:47)
[2019-01-07 02:20] LABS: BASO % 0.6 % (0-2.0); EOS % 1.4 % (0-4.5); HEMATOCRIT 31.3 % (35.4-49); HEMOGLOBIN 9.9 GM/dL (11.7-16.9); LYMPH % 21.1 % (8-40); MCH 22.5 pg (25.7-33.7); MCHC 31.8 g/dl (32.0-35.9); MEAN CELL VOLUME 70.9 fl (80-96); MEAN PLT VOLUME 7.5 fl (7.5-11.1); MONO % 11.5 % (3.8-10.2); NEUT % 65.4 % (42.8-82.8); PLATELET COUNT 203 K/MM3 (134-434); RBC 4.41 M/mm3 (4.00-5.60); WHITE BLOOD COUNT 3.7 K/mm3 (4.0-10.0)
[2019-01-07 02:56] LABS: ALBUMIN 3.6 g/dl (3.4-5.0); BILIRUBIN,TOTAL 0.3 mg/dL (0.2-1); BLOOD UREA NITROGEN 15.4 mg/dL (7-18); CALCIUM 8.1 mg/dL (8.5-10.1); CREATININE 0.8 mg/dL (0.55-1.3); POTASSIUM 3.6 mmol/L (3.5-5.1); TOT PROT 6.5 g/dl (6.4-8.2)
== END 2019-01-07 02:45 | disposition left against medical advice (07) ==
LOC: FER 01:04
DX: R10.9 Unspecified abdominal pain (principal)
CPT/HCPCS: 36415; 80053; 85025; 99285-25; J0131